=== PATIENT | female | born 1975 | race Caucasian/White ===

== ENCOUNTER 2017-05-31 18:37 | Emergency (ER) | payer MEDICAID ==
[~2017-05-31] VITALS: Ht 167.6 cm; Wt 81.6 kg
[2017-05-31 19:40] VITALS: BP 154/86
== END 2017-05-31 21:28 | disposition home or self-care (01) ==
LOC: ER 18:39
DX: M77.31 Calcaneal spur, right foot (principal); Z86.711 Personal history of pulmonary embolism; Z90.49 Acquired absence of other specified parts of digestive tract; Z90.89 Acquired absence of other organs; X58.XXXA Exposure to other specified factors, initial encounter; Y93.02 Activity, running; Y93.67 Activity, basketball; Y92.89 Other specified places as the place of occurrence of the external cause; Y99.8 Other external cause status
CPT/HCPCS: 73610-TC; 73630-TC; A4606; Z7610

== ENCOUNTER 2018-03-07 21:50 | Emergency (ER) | payer SELFPAY ==
[~2018-03-07] VITALS: Ht 160 cm; Wt 95.3 kg
[2018-03-07 21:56] VITALS: BP 143/76
== END 2018-03-07 23:22 | disposition home or self-care (01) ==
LOC: ER 21:53
DX: S92.515A Nondisplaced fracture of proximal phalanx of left lesser toe(s), initial encounter for closed fracture (principal); Z86.711 Personal history of pulmonary embolism; Z90.89 Acquired absence of other organs; W22.09XA Striking against other stationary object, initial encounter; Y93.89 Activity, other specified; Y92.89 Other specified places as the place of occurrence of the external cause; Y99.8 Other external cause status
CPT/HCPCS: 73660-TC; A4606; Z7610

== ENCOUNTER 2018-12-11 19:36 | Emergency (ER) | payer SELFPAY ==
[~2018-12-11] VITALS: Ht 162.6 cm; Wt 106.1 kg
--- NOTE | 2018-12-11 19:48 | NUR ---
BIBS. C/O "R L Q ABD PAIN RADIATING TO R BACK SINCE TUESDAY" +N-V. -DIZZY. -DYSURIA. PT IS AMB, AOX4, VSS, RR EVEN AND UNLABORED. NO ACUTE DISTRESS NOTED. SKIN WARM, DRY, INTACT. READY FOR EVAL.
[2018-12-11] MEDS ORDERED: KETOROLAC TROMETHAMINE INJ 30 MG/ML VIAL ONE (20:13)
[2018-12-11 20:18] LABS: APPEARANCE,URINE Clear (CLEAR); BILIRUBIN,URINE Negative (NEGATIVE); BLOOD, URINE Negative Ery/uL (NEGATIVE); COLOR,URINE Yellow (YELLOW); KETONES,URINE Trace (NEGATIVE); LEUKOCYTE ESTERASE ,URINE Negative (NEGATIVE); NITRITE, URINE Negative (NEGATIVE); PROTEIN,URINE Negative (NEGATIVE); UGLUCOSE Negative (NEGATIVE); UROBILINOGEN,URINE 0.2 EU/dL (0.2)
[2018-12-11 20:22] LABS: BACTERIA,URINE None seen /HPF (None Seen); RBC,URINE 0-2 /HPF (0-2); SQUAMOUS EPITHELIAL CELL,UR Few /HPF (None Seen); WBC,URINE 0-2 /HPF (0-3)
[2018-12-11] MEDS ORDERED: KETOROLAC TROMETHAMINE INJ 30 MG/ML VIAL IM ONE (20:30)
[2018-12-11 20:50] LABS: BASOPHILS # (AUTO) 0.1 /CMM (0.0-0.2); BASOPHILS % (AUTO) 0.7 % (0.0-2.0); EOSINOPHILS % (AUTO) 1.6 % (0.0-6.0); HEMATOCRIT 29 % (33-45); HEMOGLOBIN 9.1 g/dL (11.5-14.8); LYMPHOCYTES # (AUTO) 2.5 /CMM (0.8-4.8); LYMPHOCYTES % (AUTO) 31.8 % (20.0-44.0); MEAN CORPUSCULAR HGB CONC 31 g/dl (31.0-36.0); MEAN CORPUSCULAR VOLUME 68 fL (82-100); MONOCYTES # (AUTO) 0.6 /CMM (0.1-1.30); MONOCYTES % (AUTO) 7.9 % (2.0-12.0); NEUTROPHILS # (AUTO) 4.5 /CMM (1.8-8.9); PLATELET COUNT (AUTO) 326 /CMM (150-450); WHITE BLOOD COUNT (AUTO) 7.8 K/uL (4.3-11.0)
[2018-12-11 21:02] LABS: CREATININE 0.7 mg/dL (0.6-1.3); POTASSIUM 3.8 mmol/L (3.5-5.1)
[2018-12-11 21:16] LABS: ALBUMIN 3.3 g/dL (3.4-5.0); BILIRUBIN,TOTAL 0.1 mg/dL (0.2-1.0); TOTAL PROTEIN, SERUM 7.2 g/dL (6.4-8.2)
--- NOTE | 2018-12-11 21:37 | NUR ---
PT RESTING COMFORTABLY IN BED. NO COMPLAINTS AT THIS TIME. PROVIDED BLANKETS FOR COMFORT. WILL CONT TO MONITOR.
--- NOTE | 2018-12-11 22:12 | NUR ---
Patient discharged to home in stable condition. Written and verbal after care instructions given. Patient verbalizes understanding of instruction.
[2018-12-11 22:13] VITALS: BP 141/80
== END 2018-12-11 22:14 | disposition home or self-care (01) ==
LOC: ER 19:39
DX: R10.31 Right lower quadrant pain (principal); Z86.711 Personal history of pulmonary embolism; Z90.89 Acquired absence of other organs
CPT/HCPCS: 36415; 76705; 80048; 80076; 81001; 83690; 84703; 85025; 96372; 99284; A4606; J1885; 81000-TC

== ENCOUNTER 2019-06-21 15:32 | Emergency (ER) | payer MEDICAID ==
[~2019-06-21] VITALS: Ht 162.6 cm; Wt 106.1 kg
[2019-06-21 15:37] VITALS: BP 131/72
[2019-06-21] MEDS ORDERED: IBUPROFEN 600 MG TABLET PO ONE ×2 (16:30→16:49)
== END 2019-06-21 16:58 | disposition home or self-care (01) ==
LOC: ER 15:33
DX: S63.591A Other specified sprain of right wrist, initial encounter (principal); S16.1XXA Strain of muscle, fascia and tendon at neck level, initial encounter; Z86.711 Personal history of pulmonary embolism; Z90.89 Acquired absence of other organs; V49.49XA Driver injured in collision with other motor vehicles in traffic accident, initial encounter; Y93.89 Activity, other specified; Y92.488 Other paved roadways as the place of occurrence of the external cause; Y99.8 Other external cause status
CPT/HCPCS: 73110

== ENCOUNTER 2019-06-29 21:37 | Emergency (ER) | payer MEDICAID ==
[~2019-06-29] VITALS: Ht 162.6 cm; Wt 110.7 kg
[2019-06-29] MEDS ORDERED: IV NS 0.9% 500 ML BAG IV ONE (22:00)
[2019-06-29 22:15] LABS: BASOPHILS % (AUTO) 0.4 % (0.0-2.0); EOSINOPHILS % (AUTO) 1.8 % (0.0-6.0); HEMATOCRIT 29 % (33-45); HEMOGLOBIN 9.3 g/dL (11.5-14.8); LYMPHOCYTES # (AUTO) 2.9 /CMM (0.8-4.8); MEAN CORPUSCULAR HGB CONC 32 g/dl (31.0-36.0); MEAN CORPUSCULAR VOLUME 65 fL (82-100); MONOCYTES # (AUTO) 0.7 /CMM (0.1-1.30); MONOCYTES % (AUTO) 7.4 % (2.0-12.0); NEUTROPHILS # (AUTO) 5.8 /CMM (1.8-8.9); NEUTROPHILS % (AUTO) 60.4 % (43.0-81.0); PLATELET COUNT (AUTO) 362 /CMM (150-450); RED BLOOD CELL COUNT(AUTO) 4.49 MIL/uL (4.0-5.2); WHITE BLOOD COUNT (AUTO) 9.6 K/uL (4.3-11.0)
[2019-06-29 22:21] LABS: ALANINE AMINOTRANSFERASE 17 U/L (12-78); ALBUMIN 3.6 g/dL (3.4-5.0); ALKALINE PHOSPHATASE 99 U/L (46-116); ASPARTATE AMINOTRANSFERASE 10 U/L (15-37); BILIRUBIN,DIRECT 0.1 mg/dL (0.0-0.2); BILIRUBIN,TOTAL 0.2 mg/dL (0.2-1.0); CALCIUM, SERUM 8.5 mg/dL (8.5-10.1); CARBON DIOXIDE 28 mmol/L (21-32); CHLORIDE 104 mmol/L (98-107); CREATININE 0.7 mg/dL (0.6-1.3); GLUCOSE 94 mg/dL (74-106); POTASSIUM 3.4 mmol/L (3.5-5.1); SODIUM SERUM 139 mmol/L (136-145); TOTAL PROTEIN, SERUM 7.6 g/dL (6.4-8.2); UREA NITROGEN, BLOOD 15 mg/dL (7-18)
[2019-06-29 23:17] LABS: D-DIMER 2.11 mg/L(FEU (0.17-0.50)
[2019-06-29] MEDS ORDERED: CT SWABBABLE VALVE TRANS SET 1 EA INFUS.SET MC ONE (23:42)
[2019-06-29] MEDS ORDERED: IOHEXOL-350 100 ML VIAL IV ONE (23:42)
[2019-06-29] MEDS ORDERED: IV NS 0.9% 250 ML IV ONE (23:42)
[2019-06-29 23:44] LABS: EOSINOPHILS % (MANUAL) 2 % (0-4); LYMPHOCYTES % (MANUAL) 23 % (16-48); MONOCYTES % (MANUAL) 7 % (0-11.0); NEUTROPHILS % (MANUAL) 68 (42-76)
--- NOTE | 2019-06-30 03:15 | NUR ---
pt ok to discharge per linette. IV removed. Catheter intact and site benign. Pressure and 4x4 applied to site. No bleeding noted.Patient discharged to home in stable condition. Written and verbal after care instructions given. Patient verbalizes understanding of instruction.Patient is awake and alert to self, day, and place. pt ambulatory with a steady gait
[2019-06-30 03:34] VITALS: BP 131/91
== END 2019-06-30 03:36 | disposition home or self-care (01) ==
LOC: ER 21:38
DX: R07.89 Other chest pain (principal); Z90.89 Acquired absence of other organs; Z86.711 Personal history of pulmonary embolism
CPT/HCPCS: 36415 ×2; 71045; 71275; 80048; 80076; 84484 ×2; 85025; 85378; 85730; 93005; 99284; J7030; J7050; Q9967

== ENCOUNTER 2019-09-04 15:06 | Emergency (ER) | payer MEDICAID ==
[~2019-09-04] VITALS: Ht 162.6 cm; Wt 105.7 kg
--- NOTE | 2019-09-04 15:40 | NUR ---
c/o pulsating headache and neck pain 06/05 ps and r face numbeness, x 2 days, pt aaox4, -sob, nad noted, pending md le
[2019-09-04] MEDS ORDERED: diphenhydrAMINE HCL 50 MG/ML VIAL ONE (16:26)
[2019-09-04] MEDS ORDERED: METOCLOPRAMIDE HCL 10 MG/2 ML VIAL ONE (16:26)
[2019-09-04] MEDS ORDERED: KETOROLAC TROMETHAMINE INJ 30 MG/ML VIAL ONE (16:26)
[2019-09-04 16:30] LABS: BASOPHILS # (AUTO) 0.1 /CMM (0.0-0.2); BASOPHILS % (AUTO) 0.9 % (0.0-2.0); EOSINOPHILS % (AUTO) 4.5 % (0.0-6.0); HEMATOCRIT 29 % (33-45); HEMOGLOBIN 8.8 g/dL (11.5-14.8); LYMPHOCYTES # (AUTO) 2.2 /CMM (0.8-4.8); MEAN CORPUSCULAR HGB CONC 31 g/dl (31.0-36.0); MONOCYTES # (AUTO) 0.5 /CMM (0.1-1.30); MONOCYTES % (AUTO) 7.4 % (2.0-12.0); NEUTROPHILS # (AUTO) 4.1 /CMM (1.8-8.9); NEUTROPHILS % (AUTO) 56.2 % (43.0-81.0); PLATELET COUNT (AUTO) 428 /CMM (150-450); RED BLOOD CELL COUNT(AUTO) 4.52 MIL/uL (4.0-5.2); WHITE BLOOD COUNT (AUTO) 7.2 K/uL (4.3-11.0)
[2019-09-04] MEDS ORDERED: IV NS 0.9% 1,000 ML BAG IV ONE (16:30)
[2019-09-04] MEDS ORDERED: diphenhydrAMINE HCL 50 MG/ML VIAL IV ONE (16:30)
[2019-09-04] MEDS ORDERED: KETOROLAC TROMETHAMINE INJ 30 MG/ML VIAL IV ONE (16:30)
[2019-09-04] MEDS ORDERED: METOCLOPRAMIDE HCL 10 MG/2 ML VIAL IV ONE (16:30)
[2019-09-04 16:37] LABS: CALCIUM, SERUM 8.7 mg/dL (8.5-10.1); CREATININE 0.6 mg/dL (0.6-1.3); POTASSIUM 4.4 mmol/L (3.5-5.1)
[2019-09-04 16:46] LABS: MEAN CORPUSCULAR VOLUME 63 fL (82-100)
[2019-09-04 16:51] LABS: BILIRUBIN,URINE Negative (NEGATIVE); COLOR,URINE Yellow (YELLOW); KETONES,URINE Negative (NEGATIVE); LEUKOCYTE ESTERASE ,URINE Negative (NEGATIVE); NITRITE, URINE Negative (NEGATIVE); PH,URINE 6.5 (5.0-8.0); PROTEIN,URINE Negative (NEGATIVE); UGLUCOSE Negative (NEGATIVE); UROBILINOGEN,URINE 0.2 EU/dL (0.2)
[2019-09-04 16:52] LABS: APPEARANCE,URINE CLEAR (CLEAR); BLOOD, URINE NEGATIVE Ery/uL (NEGATIVE)
[2019-09-04 17:46] LABS: BASOPHILS % (MANUAL) 1 % (0.0-2.0); EOSINOPHILS % (MANUAL) 3 % (0-4); LYMPHOCYTES % (MANUAL) 28 % (16-48); MONOCYTES % (MANUAL) 9 % (0-11.0); NEUTROPHILS % (MANUAL) 59 (42-76)
[2019-09-04 18:20] VITALS: BP 130/65
--- NOTE | 2019-09-04 18:56 | NUR ---
Patient discharged to home in stable condition. Written and verbal after care instructions given. Patient verbalizes understanding of instruction. IV removed. Catheter intact and site benign. Pressure and 4x4 applied to site. No bleeding noted.
== END 2019-09-04 18:59 | disposition home or self-care (01) ==
LOC: ER 15:08
DX: G43.909 Migraine, unspecified, not intractable, without status migrainosus (principal); Z86.711 Personal history of pulmonary embolism; Z90.89 Acquired absence of other organs
CPT/HCPCS: 36415; 70450; 80048; 81001; 84703; 85025; 85730; 96374; 96375; 99284; J1200; J1885; J2765; J7030 ×2; 81000-TC